=== PATIENT | male | born 1975 | race Caucasian/White ===

== ENCOUNTER 2022-12-18 06:37 | Day surgery (SDC) | payer OTHER ==
[2022-12-17 10:51] VITALS: BMI 30.5
[2022-12-18] MEDS ORDERED: Bupivacaine/Epinephrine 0.25% 30 ML VIAL ONE (07:52)
[2022-12-18] MEDS ORDERED: Bacitracin Zinc Ointment 30 gm TUBE ONE (08:16)
[2022-12-18] MEDS ORDERED: Sodium Chloride 0.9% 0 ML ONE (08:30)
[2022-12-18] MEDS ORDERED: CEFAZOLIN 2 GM VIAL ONE (08:30)
[2022-12-18] MEDS ORDERED: Esmolol 100 MG/10 ML VIAL ONE (09:08)
[2022-12-18] MEDS ORDERED: PROPOFOL 200 MG/20 ML VIAL ONE (09:08)
[2022-12-18] MEDS ORDERED: Lidocaine 1% PF 5 ML VIAL ONE (09:08)
== END 2022-12-18 10:40 | disposition home or self-care (01) ==
LOC: SDC 06:37
PROVIDERS: ATTEND Internal Medicine Gastroenterology
PROC: 0DBQXZX Excision of Anus, External Approach, Diagnostic (ICD-10-PCS; principal; 2022-12-18)
PROC: 0DJD8ZZ Inspection of Lower Intestinal Tract, Via Natural or Artificial Opening Endoscopic (ICD-10-PCS; principal; 2022-12-18)
DX: C44.520 Squamous cell carcinoma of anal skin (principal); I10 Essential (primary) hypertension; G47.30 Sleep apnea, unspecified; K64.9 Unspecified hemorrhoids; Z90.49 Acquired absence of other specified parts of digestive tract; Z79.899 Other long term (current) drug therapy
CPT/HCPCS: 88305; J2704; J3490

== ENCOUNTER 2023-01-17 14:45 | Outpatient (CLI) | payer OTHER ==
[2023-01-17 16:25] LABS: #Basophils 0.1 10x3/uL (0.0-0.2); #Eosinphils 0.2 10x3/uL (0.0-0.5); #Monocytes 0.7 10x3/uL (0.0-1.1); #Neutrophils 5.4 10x3/uL (1.5-8.4); %Basophils 0.5 % (0.0-2.0); %Eosinophils 2.1 % (0.0-6.0); %Lymphocytes 38.1 % (18.0-47.0); Hemoglobin 15.7 g/dL (13.5-17.5); Mean Corpuscular HGB CONC 34.1 g/dL (32.0-36.0); Mean Corpuscular Hemoglobin 31.7 pg (27.0-33.0); Mean Corpuscular Volume 92.7 fl (81.2-95.1); Mean Platelet Volume 11.1 fl (7.4-10.4); Platelet Count 154 10x3/uL (150-450); Red Blood Cell (RBC) Count 4.96 10x6/uL (4.32-5.72); White Blood Cell (WBC) Count 10.4 10x3/uL (3.5-10.5)
[2023-01-17 16:45] LABS: Anion Gap 15 mmol/L (10-20); BUN (Urea Nitrogen) 11 mg/dL (8.9-20.6); Calc. Creatinine Clearance 0 mL/min (70-130); Calcium 9.3 mg/dL (7.8-10.44); Carbon Dioxide 25 mmol/L (22-29); Chloride 102 mmol/L (98-107); Estimated GFR 118; Glucose 84 mg/dL (70-105); Potassium 3.8 mmol/L (3.5-5.1); Sodium 138 mmol/L (136-145)
== END 2023-01-17 14:46 | disposition home or self-care (01) ==
LOC: LABBT 14:45
PROVIDERS: ATTEND Specialist
DX: Z01.818 Encounter for other preprocedural examination (principal); C21.0 Malignant neoplasm of anus, unspecified
CPT/HCPCS: 80048; 85025; 93005; 93010

== ENCOUNTER 2023-01-18 11:41 | Day surgery (SDC) | payer OTHER ==
[2023-01-17 15:12] VITALS: BMI 29.8
[2023-01-18] MEDS ORDERED: Acetaminophen 500 MG TAB ONE (12:17)
[2023-01-18] MEDS ORDERED: Ketorolac Tromethamine 30 MG/ML VIAL ONE (12:17)
[2023-01-18] MEDS ORDERED: Midazolam HCl 2 mg/2 ml Vial ONE ×2 (15:13→15:26)
[2023-01-18] MEDS ORDERED: fentaNYL PF 100 MCG/2 ML SYRINGE ONE (15:15)
[2023-01-18] MEDS ORDERED: Propofol 500 MG/50 ML VIAL ONE (15:15)
[2023-01-18] MEDS ORDERED: Bupivacaine/Epinephrine 0.25% 30 ML VIAL ONE (15:18)
[2023-01-18] MEDS ORDERED: Lidocaine 1% MPF 2 ML VIAL ONE (15:18)
[2023-01-18] MEDS ORDERED: CEFAZOLIN 2 GM VIAL ONE (15:29)
[2023-01-18] MEDS ORDERED: Sodium Chloride 0.9% 100 ML ONE (15:29)
[2023-01-18] MEDS ORDERED: Ondansetron PF 4 MG/2 ML Vial ONE (15:40)
[2023-01-18] MEDS ORDERED: Lidocaine 1% PF 5 ML VIAL ONE (15:40)
[2023-01-18] MEDS ORDERED: Dexamethasone 20 MG/5 ML VIAL ONE (15:40)
[2023-01-18] MEDS ORDERED: PROPOFOL 200 MG/20 ML VIAL ONE (15:40)
[2023-01-18] MEDS ORDERED: fentaNYL 50 mcg/mL 1 mL Vial ONE (16:50)
== END 2023-01-18 17:20 | disposition home or self-care (01) ==
LOC: SDC 11:41
PROVIDERS: ATTEND Specialist
PROC: 02HV33Z Insertion of Infusion Device into Superior Vena Cava, Percutaneous Approach (ICD-10-PCS; principal; 2023-01-18)
PROC: B518ZZA Fluoroscopy of Superior Vena Cava, Guidance (ICD-10-PCS; principal; 2023-01-18)
PROC: 0JH60WZ Insertion of Totally Implantable Vascular Access Device into Chest Subcutaneous Tissue and Fascia, Open Approach (ICD-10-PCS; principal; 2023-01-18)
DX: C44.520 Squamous cell carcinoma of anal skin (principal); F17.210 Nicotine dependence, cigarettes, uncomplicated; I10 Essential (primary) hypertension; G47.30 Sleep apnea, unspecified; Z79.899 Other long term (current) drug therapy
CPT/HCPCS: 71045; C1788; J1100; J1642; J1885; J2250; J2405; J2704; J3010; J3490

== ENCOUNTER 2023-03-02 11:19 | Emergency (ER) | payer OTHER ==
[~2023-03-02 11:19] MED LIST: Iopamidol-370 76% 500 ML MDV (1 ML CHARGE) ONE
[2023-03-02] MEDS ORDERED: Ketorolac Tromethamine 30 MG/ML VIAL ONE (12:00)
[2023-03-02] MEDS ORDERED: Morphine 4 MG/ML VIAL ONE ×3 (12:00→13:29)
[2023-03-02 12:15] LABS: #Eosinphils 0.1 thou/uL (0.0-0.7); #Monocytes 0.2 thou/uL (0.11-0.59); #Neutrophils 2.6 thou/uL (1.40-6.50); %Basophils 0.6 % (0.0-1.0); %Eosinophils 3.4 % (0.0-10.0); %Lymphocytes 11.9 % (21.0-51.0); %Monocytes 5.8 % (0.0-10.0); Hemoglobin 12.8 g/dL (14.0-18.0); Mean Corpuscular HGB CONC 34.1 g/dL (32.0-36.0); Mean Corpuscular Hemoglobin 33.4 pg (27.0-31.0); Mean Corpuscular Volume 97.9 fl (78.0-98.0); Mean Platelet Volume 9.6 fL (7.4-10.4); Platelet Count 101 10x3/uL (130-400); RBC Distribution Width 15.1 % (11.5-14.5); Red Blood Cell (RBC) Count 3.83 mill/uL (4.70-6.10); White Blood Cell (WBC) Count 3.3 10x3/uL (4.8-10.8)
[2023-03-02 12:39] LABS: ALT (SGPT) 34 U/L (8-55); AST (SGOT) 38 U/L (5-34); Albumin 3.7 g/dL (3.5-5.0); Alkaline Phosphatase 88 U/L (40-110); Anion Gap 11 mmol/L (10-20); BUN (Urea Nitrogen) 11 mg/dL (8.9-20.6); Bilirubin, Total 0.9 mg/dL (0.2-1.2); Calc. Creatinine Clearance 0 mL/min (70-130); Calcium 9.2 mg/dL (7.8-10.44); Carbon Dioxide 24 mmol/L (22-29); Chloride 103 mmol/L (98-107); Estimated GFR 122; Globulin 3.4 g/dL (2.4-3.5); Glucose 105 mg/dL (70-105); Lipase 11 U/L (8-78); Potassium 3.9 mmol/L (3.5-5.1); Protein, Total 7.1 g/dL (6.0-8.3); Sodium 134 mmol/L (136-145)
== END 2023-03-02 14:00 | disposition home or self-care (01) ==
LOC: ERS 11:19
DX: R10.819 Abdominal tenderness, unspecified site (principal); D72.819 Decreased white blood cell count, unspecified; I10 Essential (primary) hypertension; F17.210 Nicotine dependence, cigarettes, uncomplicated
CPT/HCPCS: 36415; 74177; 80053; 83690; 85025; 96374; 96375; 96376; J1885; J2270; Q9967

== ENCOUNTER 2023-11-28 09:03 | Outpatient (CLI) | payer OTHER | END 2023-11-28 09:04 | disposition home or self-care (01) | LOC: BICMAMMO 09:03 | PROVIDERS: ATTEND Radiology Radiation Oncology | DX: N63.10 Unspecified lump in the right breast, unspecified quadrant (principal) | CPT/HCPCS: 77066; G0279 ==

== ENCOUNTER 2024-07-13 09:03 | Outpatient (CLI) | payer OTHER | END 2024-07-13 09:04 | disposition home or self-care (01) | LOC: BICCT 09:03 | PROVIDERS: ATTEND Internal Medicine Hematology & Oncology | DX: C21.1 Malignant neoplasm of anal canal (principal); K62.9 Disease of anus and rectum, unspecified | CPT/HCPCS: 71260; 74177 ==